=== PATIENT | female | born 1990 | race Hispanic/Latino ===

== ENCOUNTER → 2020-07-14 14:13 | Outpatient (CLI) | payer OTHER, SELFPAY ==
[2020-07-14 15:32] LABS: Add Manual Diff / Slide Review NO; Basophils Absolute Auto 0 /uL (0-100); Basophils Percent Auto 0.3 % (0-2); Eosinophils Absolute Auto 100 /uL (0-450); Eosinophils Percent Auto 1.6 % (2-4); Hematocrit 40.5 % (36-46); Hemoglobin 13.7 g/dL (12.0-16.0); Lymphocytes Absolute Auto 2100 /uL (1100-4500); Lymphocytes Percent Auto 23.6 % (25-40); Mean Corpuscular HGB Conc 33.9 % (30-36); Mean Corpuscular Hemoglobin 29.7 PG (26-34); Mean Corpuscular Volume 87.7 fL (80-100); Monocytes Absolute Auto 400 /uL (0-900); Monocytes Percent Auto 4.9 % (3-14); Neutrophils Absolute Auto 6300 /uL (1500-7000); Neutrophils Percent Auto 69.6 % (50-75); Platelet Count 276 X10^3/uL (150-400); Red Blood Cell Count 4.62 X10^6/uL (4.0-5.2); Red Cell Distribution Width 13.2 % (11.6-14.8); White Blood Cell Count 9.1 X10^3/uL (4.5-11.0)
[2020-07-14 16:33] LABS: Hepatitis B Surface Antigen NEGATIVE s/c (NEGATIVE)
[2020-07-14 16:43] LABS: Urine N gonorrhoeae NOT DETECTED
[2020-07-14 16:49] LABS: HIV 1 & 2 Ab/Ag 4th Gen Combo NEGATIVE (NEGATIVE); Hep C Virus Ab w/Reflex Quant NEGATIVE s/c (NEGATIVE)
[2020-07-14 16:55] LABS: Urine Chlamydia NOT DETECTED
[2020-07-15 07:36] LABS: RPR Screen Non Reactive (Non Reactive)
[2020-07-15 10:36] LABS: Varicella IgG Antibody 473 index (Immune >165)
== END ==
PROVIDERS: Referring Provider Obstetrics & Gynecology; Visit Provider Obstetrics & Gynecology
DX: Z34.01 Encounter for supervision of normal first pregnancy, first trimester (principal); Z3A.10 10 weeks gestation of pregnancy
CPT/HCPCS: 36415; 80055; 86787; 86803; 86850; 86900; 86901; 87389; 87491; 87591

== ENCOUNTER → 2020-07-30 16:47 | Outpatient (CLI) | payer OTHER, SELFPAY ==
[2020-07-30 17:17] LABS: Appearance Urine UA CLEAR; Bilirubin Urine UA NEGATIVE (NEGATIVE); Color Urine UA YELLOW; Glucose Urine UA NEGATIVE (Negative); Ketones Urine UA NEGATIVE (NEGATIVE); Leukocyte Esterase Urine UA NEGATIVE (NEGATIVE); Nitrite Urine UA NEGATIVE (Negative); Occult Blood Urine UA 1+ (Negative); Protein Urine UA NEGATIVE (Negative); Specific Gravity Urine UA 1.015 (1.000-1.035); Urobilinogen Urine UA 0.2 E.U./dL (0.2)
[2020-07-30 17:29] LABS: Bacteria Urine None Seen; WBC Urine None Seen (0-5/HPF)
[2020-07-30 17:43] LABS: RBC Urine 1-5/HPF (0-5/HPF); Squamous Epithelial Cell Urine 1-5 /HPF (0-5/HPF)
== END ==
PROVIDERS: Referring Provider Obstetrics & Gynecology; Visit Provider Obstetrics & Gynecology
DX: Z34.81 Encounter for supervision of other normal pregnancy, first trimester (principal); Z36.0 Encounter for antenatal screening for chromosomal anomalies
CPT/HCPCS: 36415; 81003; 81015; 81420; 87086

== ENCOUNTER → 2020-09-08 16:12 | Outpatient (CLI) | payer OTHER, SELFPAY ==
[2020-09-10 19:38] LABS: Gest Age on Col Date 18.3 weeks (.); Insulin Dep Diabetes No (.); OSBR Risk 1IN 10000 (.); Results Report (.); Test Results *Screen Negative* (.)
== END ==
PROVIDERS: Referring Provider Obstetrics & Gynecology; Visit Provider Obstetrics & Gynecology
DX: Z34.02 Encounter for supervision of normal first pregnancy, second trimester (principal); Z3A.18 18 weeks gestation of pregnancy
CPT/HCPCS: 36415; 82105

== ENCOUNTER → 2020-09-22 15:37 | Outpatient (CLI) | payer OTHER, SELFPAY ==
--- NOTE | 2020-09-22 15:38 | DI.US.S_ITS ---
PROCEDURE: US OB >= 14 WEEKS FETUS INDICATIONS: Anatomy scan OUTSIDE/PRIOR DATING DATA: Last menstrual period (LMP): 05/03/20 LMP-based estimated date of delivery (SARAH): 02/07/21 First dating scan (date and location): 06/29/20 Estimated date of delivery (SARAH) from first dating scan: 02/12/21 TECHNIQUE: Real-time scanning was performed of the fetus, with image documentation and biometric measurements. Endovaginal scanning: Not performed COMPARISON: Ultrasound dated 06/29/20 and 07/14/20. FINDINGS: General: A single living intrauterine gestation is present. Presentation: Vertex Placenta: Placental position is fundal , without previa. Amniotic fluid index: 14.6 cm, normal range is 5-24 cm. heart rate: 152 beats per minute. Maternal cervical canal: 6.0 cm long. Normal lower limit is 2.5 cm. biometrics: Biparietal diameter: 4.7 cm, 20 weeks 2 days Head circumference: 16.9 cm, 19 weeks 4 days Abdominal circumference: 14.7 cm, 20 weeks 0 days Femur length: 3.3 cm, 20 weeks 3 days Estimated gestational age from initial scan: 19 weeks 4 days Composite gestational age from present scan: 20 weeks 1 day Estimated weight and percentile: 333 g, 77th percentile Measurement variability for biometric dating: +/- 7 days from 14 weeks to 15 weeks 6 days gestation, +/- 10 days from 16 weeks to 21 weeks 6 days gestation, +/- 2 weeks from 22 weeks to 27 weeks 6 days gestation, +/- 3 weeks for 28 weeks gestation or later. weight reference: 4500 g or EFW >90/95% is considered macrosomia or large for gestational age. EFW <10% is small for gestational age. EFW 5% or less is considered intra-uterine growth restriction. Anatomic survey: Neuro: Ventricles are non-dilated at less than 10 mm. Cisterna magna is normal at 3-11 mm. Cerebellum is normal in size and morphology. Nuchal skin fold: Normal at less than 6 mm between 14-21 weeks gestational age. Face: Nose and lips, facial profile are normal. Spine: No evidence for spina bifida. Heart: 4-chambered heart is present, with normal ventricular outflow tracts. Diaphragm: Diaphragm is intact. Stomach: Left-sided stomach is present. Kidneys: No hydronephrosis. Normal is less than 5 mm in 2nd trimester, less than 7 mm in 3rd trimester. Cord: 3-vessel cord has orthotopic insertion. Bladder: Normal in size. Extremities: All 4 extremities identified. IMPRESSION: Single living intrauterine fetus with a gestational age of 20 weeks and 1 day by today's ultrasound measurements. Expected interval growth. Normal anatomic survey as above Dictated by: Jef Naranjo M.D. on 09/23/2020 at 11:50 Approved by: Jef Naranjo M.D. on 09/23/2020 at 11:53
== END ==
PROVIDERS: Referring Provider Obstetrics & Gynecology; Visit Provider Obstetrics & Gynecology
DX: Z34.02 Encounter for supervision of normal first pregnancy, second trimester (principal); Z3A.20 20 weeks gestation of pregnancy
CPT/HCPCS: 76811

== ENCOUNTER → 2020-11-03 16:09 | Outpatient (CLI) | payer OTHER, SELFPAY ==
[2020-11-03 18:31] LABS: Hematocrit 36.6 % (36-46); Hemoglobin 12.8 g/dL (12.0-16.0)
[2020-11-03 18:47] LABS: GTT (PREG) 1 Hour PP 50gm Dose 130 mg/dL (76-139)
== END ==
PROVIDERS: Referring Provider Obstetrics & Gynecology; Visit Provider Obstetrics & Gynecology
DX: Z34.02 Encounter for supervision of normal first pregnancy, second trimester (principal); Z3A.26 26 weeks gestation of pregnancy
CPT/HCPCS: 36415; 82950; 85014; 85018

== ENCOUNTER → 2021-01-06 16:58 | Outpatient (CLI) | payer OTHER, SELFPAY ==
[2021-01-07 13:29] LABS: Strep Grp B PCR NEG for Grp B Strep
== END ==
PROVIDERS: Visit Provider Obstetrics & Gynecology
DX: Z34.83 Encounter for supervision of other normal pregnancy, third trimester (principal); Z3A.36 36 weeks gestation of pregnancy
CPT/HCPCS: 87653

== ENCOUNTER 2021-02-10 12:05 | Outpatient (CLI) | payer OTHER, SELFPAY | END 2021-02-10 13:15 | disposition home or self-care (01) | LOC: LABOR 12:21 → OB 02-16 03:09 | PROVIDERS: Referring Provider Obstetrics & Gynecology; Visit Provider Obstetrics & Gynecology | DX: O48.0 Post-term pregnancy (principal); Z3A.41 41 weeks gestation of pregnancy | CPT/HCPCS: 59025; G0378; G0379 ==

== ENCOUNTER 2021-02-13 05:07 | Outpatient (CLI) | payer OTHER, SELFPAY ==
--- NOTE | 2021-02-13 06:03 | P.TNLD_ITS ---
Visit Information Visit Information Date of evaluation: 02/13/21 Primary OB Provider: Minoo Potts On-call OB Provider: Yane Gar Reason for Evaluation: Yes other Comments/Additional reasons for admission: Nicole is a 30 year old at 40 weeks 6 days by certain LMP and early US. Presents with concerns for vaginal bleeding at 0330 with lots of clots like her period. Feeling movement. No LOF. Started feeling contractions in the car on the way in. Uncomplicated care with Dr. Potts. Vital Signs Vital Signs: BP 101/63, HR 92 bpm, T 36.1 [facility] Medical History Acne Allergic rhinitis (~2018) Chicken pox (~1995) Migraine (~2017) Wears glasses Surgical History No history of previous surgery Family History Mother No problems noted. Father No problems noted. Grandmother Old age Grandfather of unknown cause Grandmother Old age Grandfather Accidental Alcohol use Brother History of prediabetes Family/Other Diabetes mellitus Social History marital status: household members: spouse and family (Parents) lives independently: Yes pets and animals: Yes (X 1 dog) education level: college (BA in Human Services) occupational status: employed (Patient works from home) current occupational exposures/hazards: No bronson/hindu: Muslim special bronson needs: No Smoking Status: Never smoker second hand exposure: No alcohol intake: never substance use type: does not use Review of Systems Review of Systems ROS: Yes All systems reviewed with the patient and are negative except as otherwise documented Exam Vital Signs (past 8 hours): See above. Presentation: vertex Evaluation Evaluation Baseline heart rate: 135 Variability: Moderate (11-25) monitor accelerations: Present Monitor Decelerations: Absent Contraction Frequency (minutes): 5 Uterine Contraction Intensity: Mild Category of Tracing: Reactive Cervical dilation (cm): 1.5 Cervical effacement (%): 90 station: -1 Non-invasive Membranes Rupture Test: negative Comments: Scant amount of brown blood noted on glove after exam. No visible active bleeding. Diagnosis, Plan/Disposition Final Diagnosis (1) Spotting affecting in third trimester: Status: Acute Problem details: resolved Plan/Disposition Plan: Reassurance given of wellbeing and counseled that bleeding she noticed likely resulted from cervical change and is normal in early labor. Discussed early labor management at home. Discharge to home.
== END 2021-02-13 06:10 | disposition home or self-care (01) ==
LOC: OB 02-16 04:48
PROVIDERS: Referring Provider Nurse Practitioner Obstetrics & Gynecology; Visit Provider Nurse Practitioner Obstetrics & Gynecology
DX: O46.93 Antepartum hemorrhage, unspecified, third trimester (principal); O48.0 Post-term pregnancy; Z3A.40 40 weeks gestation of pregnancy
CPT/HCPCS: 59025; 84112; G0378; G0379

== ENCOUNTER 2021-02-14 18:56 | Inpatient (IN) | payer OTHER, SELFPAY ==
[2021-02-14] MEDS: DINOPROSTONE VAG (CERVIDIL) 10 MG VAG (21:00)
[2021-02-14 21:27] VITALS: BP 111/66
[2021-02-14 21:45] LABS: Add Manual Diff / Slide Review NO; Basophils Absolute Auto 100 /uL (0-100); Basophils Percent Auto 0.7 % (0-2); Eosinophils Absolute Auto 100 /uL (0-450); Eosinophils Percent Auto 1.2 % (2-4); Hematocrit 41.1 % (36-46); Hemoglobin 13.7 g/dL (12.0-16.0); Lymphocytes Absolute Auto 1500 /uL (1100-4500); Mean Corpuscular HGB Conc 33.3 % (30-36); Mean Corpuscular Hemoglobin 29.5 PG (26-34); Mean Corpuscular Volume 88.6 fL (80-100); Monocytes Absolute Auto 500 /uL (0-900); Monocytes Percent Auto 6.3 % (3-14); Neutrophils Absolute Auto 5600 /uL (1500-7000); Neutrophils Percent Auto 72.8 % (50-75); Platelet Count 183 X10^3/uL (150-400); Red Blood Cell Count 4.64 X10^6/uL (4.0-5.2); Red Cell Distribution Width 14.5 % (11.6-14.8); White Blood Cell Count 7.6 X10^3/uL (4.5-11.0)
[2021-02-14 21:59] LABS: COVID19 -Nasal RAPID Negative (Negative)
[2021-02-14] MEDS: hydrOXYzine pamoate 25 MG CAPSULE 50 MG PO (23:33)
[2021-02-14] MEDS: ACETAMINOPHEN 325 MG TABLET 975 MG PO (23:33)
--- NOTE | 2021-02-15 07:27 | PM.OBHP.1 ---
OB HPI Date/Time Date of admission: 02/14/21 Date Patient Seen: 02/15/21 Time Patient Seen: 07:29 History of Present Condition Chief complaint: Labor : 1 Para: 0 Estimated Date of Delivery: 02/07/21 Estimated Gestational Age (weeks): 41.1 Narrative: Joleen Aparicio is a 30 year old female, for an IOL for postdates at 41.1 weeks gestation by LMP and first trimester US. has been uncomplicated. GBS negative, O pos, rubella immune, negative GC/CT, GTT WNL. Sheila experienced contractions and brown bloody show throughout the weekend. She was seen in triage for r/o labor and vaginal bleeding on Monday. Sheila is accompanied today by her supportive and mother. She plans an epidural for pain management. Cervadil was placed by [facility] at 2100 after admit and fell out at 0300. Indications Indication for induction OB: post dates History of Present care: good care Dating criteria: LMP confirmed by 1st trimester US Ultrasounds: normal 1st trimester US and normal mid trimester US Obstetrical complications: none Medical complications: none Preadmission Labs Blood type: O (+) positive -: Antibody screen: negative, GBS status: negative, HBsAG: negative, HIV: negative and RPR/VDLR: negative -: Chlamydia screen: not detected and Gonorrhea screen: not detected -: Rubella: immune and Varicella: immune HCT: 41.1 1 hr GTT: 130 Prior (ies) History: Primigravida Evaluation Evaluation Baseline heart rate: 145 Variability: Moderate (11-25) monitor accelerations: Present Monitor Decelerations: Absent Contraction Frequency (minutes): 3 Uterine Contraction Intensity: Mild Category of Tracing: Reactive Status: Category l Cervical dilation (cm): 3 Cervical effacement (%): 90 station: -2 Comments: Santana balloon placed manually and inflated with 60 mL NS. [facility] Medical History Acne Allergic rhinitis (~2018) Chicken pox (~1995) Migraine (~2017) Wears glasses Surgical History No history of previous surgery Family History Mother No problems noted. Father No problems noted. Grandmother Old age Grandfather of unknown cause Grandmother Old age Grandfather Accidental Alcohol use Brother History of prediabetes Family/Other Diabetes mellitus Social History marital status: household members: spouse and family (Parents) lives independently: Yes pets and animals: Yes (X 1 dog) education level: college (BA in Human Services) occupational status: employed (Patient works from home) current occupational exposures/hazards: No bronson/muslim: Pentecostal special bronson needs: No Smoking Status: Never smoker second hand exposure: No alcohol intake: never substance use type: does not use Meds Home Medications and Allergies Home Medications Medication Instructions Recorded Confirmed Type prenat.vits,irasema,[id number]-[id number] 1 tab PO DAILY 06/24/20 02/14/21 History ondansetron 4 mg disintegrating 4 mg PO Q6H PRN #20 tab 07/20/20 02/14/21 Rx tablet pantoprazole 20 mg tablet,delayed 20 mg PO DAILY #30 tab 12/02/20 02/14/21 Rx release (Protonix) Allergies Allergy/AdvReac Type Severity Reaction Status Date / Time No Known Drug Allergies Allergy Verified 02/10/21 11:30 Review of Systems Review of Systems ROS: Yes All systems reviewed with the patient and are negative except as otherwise documented Exam Vital Signs (past 8 hours): BP: 95/55 mmHg, HR: 105 BPM, T: 36.1 C Const General: cooperative, comfortable and well groomed Nutritional Appearance: obese Orientation: alert, awake and oriented x3 HENMT Head: normal to inspection Neck Neck: normal visual inspection Skin General: no rashes or lesions noted Psych Appearance: grossly normal Speech and Movement: speech and movement normal Mood: congruent mood Affect: normal affect Attitude: cooperative Thought Process: normal Thought Content: normal Judgment: judgment good Objective Labs Result Diagrams: 02/14/21 21:15 Labs: Laboratory Results - last 24 hr 02/14/21 02/14/21 02/14/21 21:15 21:15 21:15 WBC 7.6 RBC 4.64 Hgb 13.7 Hct 41.1 MCV 88.6 MCH 29.5 MCHC 33.3 RDW 14.5 Plt Count 183 Neut % (Auto) 72.8 Lymph % (Auto) 19.0 L [place] % (Auto) 6.3 Eos % (Auto) 1.2 L Baso % (Auto) 0.7 Neut # (Auto) 5600 Lymph # (Auto) 1500 [place] # (Auto) 500 Eos # (Auto) 100 Baso # (Auto) 100 SARS-CoV-2 (PCR) Negative Blood Type O Positive Antibody Screen Negative Assessment and Plan Assessment and Plan Assessment and Plan narrative: A: Term nullipara Post date IOL No indication for GBS prophylaxis Cat I FHR P: Admit to , routine orders. Santana balloon placed and inflated with 60 mL NS. Obtain reactive NST then assess FHT by doppler hourly until active. Plan to start pitocin once Santana balloon has fallen out.
[2021-02-15] MEDS: LACTATED RINGERS 1,000 ML 100 ML IV ×2 (11:28→12:35)
--- NOTE | 2021-02-15 12:04 | PM.OBPNLAB ---
Date/Time Date Patient Seen: 02/15/21 Time Patient Seen: 10:30 Pain Control Pain control: tolerating well Comments: S: Sheila is walking around room with supportive partner at side. She has also tried the ball and hands and knees. She is talking through contractions and describes them as mild. O: Santana balloon fell out at 0815. Contractions now occurring every 4 min by palpation. A: Early labor P: plan to start pitocin at 1100, staffing dependent. Contractions Contractions on admission: regular Monitor mode: Palpation Contraction frequency (min): 4 Contraction duration (min): 1 Contraction pattern: Regular Contraction intensity: Mild Status status: Category l Heart Rate Baseline: 147 (FHR assessed by doppler) Assessment and Plan Assessment: induction ongoing Plan: continuous present management
[2021-02-15] MEDS: FENT 2MCG/ML BUPIV 0.125% EPI 200 MCG/100 ML PLAST..BAG 12 MCG EPIDURAL ×2 (12:30→19:06)
[2021-02-15] MEDS: OXYTOCIN PREMIX 30 UNIT/500 ML PLAST..BAG IV (12:36)
[2021-02-15] MEDS: METHYLERGONOVINE 0.2 MG/ML VIAL IM (20:30)
[2021-02-15] MEDS: TRANEXAMIC ACID 1,000 MG in SODIUM CHLORIDE 0.9% 100 ML 200 ML IV (20:45)
--- NOTE | 2021-02-15 20:51 | P.PCNOB_ITS ---
Events: Labor Induction Labor & Delivery Delivery date: 02/15/21 Intrapartal Events: Prolonged Active Phase and Abnormal Presentation Cervical ripening method: per Cervidil protocol Induction method: per pitocin protocol Delivery augmentation: rupture of membranes Delivery monitor: external FHT and external uterine Route of delivery: Episiotomy description: None L&D Laceration Description: Periurethral - 1st Degree and Vaginal - 1st Degree Delivery repair: vicryl and chromic Estimated blood loss (mL): 850 Anesthesia Type: Epidural Complications: None Narrative: Patient complete and pushed for 1 hour and 15 minutes. At 8:16 p.m., a live female delivered in the HARRIET presentation over an intact perineum. The remainder of the body delivered without difficulty and was placed on mom's abdomen. The cord was double clamped and cut. Cord bloods were obtained. Pitocin was given in the IV fluids. The placenta delivered intact with a three- vessel cord at 8:21 p.m. The fundus was massaged to firm. 0.25 of Methergine was given IM. A 1000 mg of TXA acid was given IV due to excess bleeding. A periurethral laceration was repaired with 4-0 chromic in a running interlocking fashion. A first-degree vaginal laceration was repaired with 2 0 Vicryl in running interlocking fashion. EBL 850 cc. Apgars 8 at 1 minute and 9 at 5 minutes. Epidural analgesia. . Mom and infant stable to recovery. Laps and 4 x 4 count correct. Needle count correct. [place] Baby 1: Infant gender: Female Presentation: vertex Position: Left Occiput Anterior Placenta delivery description: Spontaneous Cord Vessel Description: 3 Vessels score (1 min): 8 score (5 min): 9 Plan for aftercare: Routine care
[2021-02-15] MEDS: ACETAMINOPHEN 325 MG TABLET 650 MG PO (23:10)
[2021-02-15] MEDS: IBUPROFEN 600 MG TABLET PO (23:11)
[2021-02-16 08:05] LABS: Hematocrit 32.9 % (36-46); Hemoglobin 11.2 g/dL (12.0-16.0)
[2021-02-16] MEDS: PRENATAL VIT,CALC/IRON/FOLIC 1 TABLET 1 TAB PO (09:47)
[2021-02-16] MEDS: DOCUSATE 100 MG CAPSULE PO (09:47)
[2021-02-16] MEDS: IBUPROFEN 600 MG TABLET PO (09:47)
[2021-02-16] MEDS: ACETAMINOPHEN 325 MG TABLET 650 MG PO (09:48)
[2021-02-16] MEDS: DERMOPLAST SPRAY 20% 60 ML 1 SPRAY TOP (11:59)
--- NOTE | 2021-02-16 15:18 | P.PNOB_ITS ---
Subjective - OB Subjective Patient comments: no complaints [place] baby status: doing well and nursing well feeding status: exclusively breast feeding Date Patient Seen: 02/16/21 Time Patient Seen: 15:18 Interval history: Patient is a 30-year-old 1 para 1 day # 1 status post spontaneous vaginal delivery. She had a periurethral laceration which was repaired. The Santana catheter was left in place overnight. It was removed 1 hour ago. Patient has not voided as of yet. Exam Narrative Exam Narrative: Generally: Patient is sitting up in bed, holding infant, no acu te distress Fundus: Firm at U-1 Perineum: Dry Extremities: 1+ edema, negative Homans Objective Labs Result Diagrams: 02/16/21 07:45 Labs: Laboratory Results - last 24 hr 02/16/21 07:45 Hgb 11.2 L Hct 32.9 L Assessment & Plan Plan day: 1 plan OB: routine care Comments: Give patient 3 hours to void without the catheter otherwise bladder scan Time Spent With Patient Time: Total time spent is greater than 50% in coordination of care (as do cumented) at patient's floor/unit and/or counseling patient: Time with patient: 15-24 minutes
[2021-02-16 19:52] VITALS: BP 105/61; PULSE 76; RESP 16; TEMP 36.4
--- NOTE | 2021-02-20 05:55 | P.DS_ITS ---
Discharge Providers Provider Date of admission: 02/14/21 18:56 Discharge Date: 02/17/21 Consults: 02/16/21 20:47 Consult to Telephone Repairer Routine Comment: Discharge provider: Minoo Potts MD Summary Hospital Course Date Patient Seen: 02/17/21 Time Patient Seen: 13:30 Diagnoses: 41 weeks gestation Cervidil cervical ripening Pitocin induction of labor Epidural analgesia Spontaneous vaginal delivery Vaginal/perineal laceration Periurethral laceration Vaginal/perineal and periurethral laceration repair Hospital Course: Patient is a 30-year-old 1 para 1 who presented on February 14, 2021 for Cervidil cervical ripening. She received a Cervidil. This was removed 12 hours later and Pitocin was started. She received an epidural for pain management. She progressed to complete dilation slowly. She had a spontaneous vaginal delivery without complication. She had a vaginal/perineal laceration which was repaired. She had a periurethral laceration which was repaired. Santana catheter was left in overnight. The catheter was removed on February 16, 2021. By February 17, 2021 patient was doing well. She was able to void without the catheter. was going well. Her pain was well controlled. She was discharged home Peripartum Data Infant Delivery Method: Natural Vaginal Laceration Description: Periurethral - 1st Degree, Perineal - 1st Degree and Vaginal - 1st Degree Episiotomy description: None Procedures: Cervidil cervical ripening Pitocin induction of labor Epidural analgesia Artificial rupture membranes Spontaneous vaginal delivery Vaginal/perineal laceration repair Periurethral laceration repair complications: none 1: Gender: Female Disposition of : home Status at Discharge Cognitive/behavioral status at discharge: oriented Functional status at discharge: independent ambulation Overall status at discharge: patient is progressing back to baseline Time Spent with Patient Time attestation: Total time spent providing and/or coordinating discharge services: Time spent: Less than 30 minutes Objective Labs Result Diagrams: 02/16/21 07:45 Exam Narrative Exam Narrative: Generally: Patient is sitting up in bed, holding , no acute distress Fundus: Firm at U-1 Extremities: Negative Homans, 1+ edema Discharge Plan Discharge Plan Patient Disposition: Home Provider Discharge Comment: Call with fever, chills, or bleeding vaginally more than a pad in an hour Ibuprofen 600 mg every 6 hours as needed for cramping Tylenol 650 mg every 6 hours as needed Discharge orders & Medications Prescriptions: Continued prenat.vits,irasema,[id number] Tablet 1 tab PO DAILY RF: 0 Discontinued ondansetron 4 mg tablet,disintegrating 4 mg PO Q6H PRN (Reason: nausea and vomiting) Qty: 20 RF: 2 pantoprazole [Protonix] 20 mg tablet,delayed release (DR/EC) 20 mg PO DAILY Qty: 30 RF: 0 Follow up/Referrals: Minoo Potts MD [Physician] - 6 Weeks (Appointment with Dr. Potts on Friday, March 30 at 3:30pm) Diet/Activity/Treatments Diet: Regular Activity: Nothing in the vagina for 6 week Skin/Wound/Dressing Care Report to your healthcare provider any signs of infection, such as:: chills, fever, increased pain and unusual drainage Visit Report/Discharge Packet Instructions: DI for Labor and Delivery, Vaginal
== END 2021-02-16 23:12 | disposition home or self-care (01) | DRG 807 ==
PROVIDERS: Admitting Provider Obstetrics & Gynecology; Referring Provider Obstetrics & Gynecology; Visit Provider Obstetrics & Gynecology
DX: O48.0 Post-term pregnancy (principal); Z37.0 Single live birth; O63.1 Prolonged second stage (of labor); Z3A.41 41 weeks gestation of pregnancy; Z20.822 Contact with and (suspected) exposure to COVID-19; O70.0 First degree perineal laceration during delivery; O32.8XX0 Maternal care for other malpresentation of fetus, not applicable or unspecified
CPT/HCPCS: 01967; 36415; 59050; 59400; 85014; 85018; 85025; 86850; 86900; 86901; 87635; C9803; G0379; J2210; J2590